=== PATIENT | female | born 1955 | race Caucasian/White ===

== ENCOUNTER 2019-12-16 20:48 | Inpatient (IN) ==
[2019-12-16] MEDS ORDERED: HYDROmorphone 2 MG/1 ML VIAL IV STA (21:53)
[2019-12-16] MEDS ORDERED: SODIUM CHLORIDE 0.9% 500 ML IV STA (21:53)
[2019-12-16] MEDS ORDERED: ONDANSETRON 4 MG/2 ML VIAL IV STA (21:53)
[2019-12-16 22:24] LABS: Basophils # 0.1 10*3/uL (0.0-0.2); Basophils % 0.5 % (0.0-0.8); Eosinophils % 0.3 % (0.00-10.9); Hematocrit 41.4 VOL% (35.7-47.0); Hemoglobin 13.2 GM/DL (12.0-16.0); Immature Granulocytes % 0.9 %; Immature Granulocytes Absolute 0.09 #; Lymphocytes % 10.4 % (21.3-54.2); Mean Corpuscular HGB Conc 31.9 GM/DL (32-36); Mean Corpuscular Volume 82.1 FL (87-102); Monocytes % 4.6 % (1.7-12.7); Neutrophils % 83.3 % (38.7-73.9); Platelet Count 241 T/CUMM (130-400); Red Blood Count 5.04 MC/CUMM (3.8-5.5); White Blood Count 9.8 T/CUMM (4-12)
[2019-12-16 22:34] LABS: PT Patient Result 10.3 SECS (9.8-11.9)
[2019-12-16 22:47] LABS: Apearance,Urine Slightly Hazy (Clear); Bilirubin,Urine Negative (Negative); Blood, Urine Negative (Negative); Glucose,Urine (UA) Negative (Negative); Hyaline Casts,Urine 1 /LPF (0-3); Ketones,Urine Negative (Negative); Mucus,Urine Occasional /LPF (Occasional); Nitrite,Urine Negative (Negative); Protein,Urine Negative; RBC,Urine 1 /HPF (0-4); Squamous Epithelial Cell,Urine Occasional /HPF (0-10); Urine Color Amber (Yellow); Urine Specific Gravity 1.024 (1.001-1.035); Urine Urobilinogen < 2.0 EU/DL (0.2-1.0); WBC,Urine 1 /HPF (0-6)
[2019-12-16 22:58] LABS: Alanine Aminotransferase 25 U/L (13-56); Albumin 3.4 G/DL (3.4-5.0); Alkaline Phosphatase 70 U/L (45-117); Aspartate Amino Transferase 18 U/L (0-37); Blood Urea Nitrogen 15 MG/DL (7-18); Estimated Glom Filtration Rate 100 ML/MIN; Glucose 120 MG/DL (74-106); Osmolality,Calculated 278.5 MOS/KG (273-304); Total Protein 6.9 G/DL (6.4-8.3)
[2019-12-16] MEDS ORDERED: MAGNESIUM HYDROXIDE SUSP 30 ML UDCUP PO PRN (23:04)
[2019-12-17] MEDS: SODIUM CHLORIDE 0.9% 1,000 ML IV SCH ×2 (00:19→09:26)
[2019-12-17] MEDS: HYDROmorphone 2 MG/1 ML VIAL IV PRN ×3 (02:05→10:00)
[2019-12-17 05:03] LABS: Basophils % 0.4 % (0.0-0.8); Eosinophils % 0.4 % (0.00-10.9); Hemoglobin 12.1 GM/DL (12.0-16.0); Immature Granulocytes % 0.5 %; Immature Granulocytes Absolute 0.04 #; Lymphocytes # 1.1 10*3/uL (1.4-4.0); Lymphocytes % 14.2 % (21.3-54.2); Mean Corpuscular Volume 83.2 FL (87-102); Mean Platelet Volume 9.2 FL (9.6-12.0); Neutrophils % 77.5 % (38.7-73.9); Platelet Count 203 T/CUMM (130-400); Red Blood Count 4.69 MC/CUMM (3.8-5.5); White Blood Count 7.5 T/CUMM (4-12)
[2019-12-17 05:30] LABS: Albumin 3.1 G/DL (3.4-5.0); Bilirubin,Total 0.9 MG/DL (0.2-1.0); Calcium 8.3 MG/DL (8.5-10.1); Osmolality,Calculated 272.8 MOS/KG (273-304); Total Protein 6.1 G/DL (6.4-8.3)
[2019-12-17] MEDS: ONDANSETRON 4 MG/2 ML VIAL IV PRN ×2 (05:57→09:59)
[2019-12-17] MEDS ORDERED: ceFAZolin 1,000 MG in SYRINGE 1 EACH IV ONE (06:30)
[2019-12-17] MEDS ORDERED: ceFAZolin 2,000 MG in PREMIX 1 EACH IV ONE (07:17)
[2019-12-17] MEDS: MULTIVITAMIN (BEROCCA) TABLET PO SCH (08:58)
[2019-12-17] MEDS ORDERED: ENOXAPARIN 40 MG/0.4 ML SYRINGE SUBCUT SCH (09:00)
[2019-12-17] MEDS ORDERED: ZALEPLON 5 MG CAPSULE PO PRN (11:30)
[2019-12-17] MEDS ORDERED: diphenhydrAMINE CAP 25 MG CAPSULE PO PRN (11:30)
[2019-12-17] MEDS ORDERED: TRANEXAMIC ACID 1,000 MG/10 ML VIAL ONE (11:54)
[2019-12-17] MEDS ORDERED: BACITRACIN OINT 0.9 GM PACK TOP ONE (11:54)
[2019-12-17] MEDS ORDERED: ROPIVACAINE 0.5% 30 ML VIAL ONE (12:27)
[2019-12-17] MEDS ORDERED: BUPIVACAINE SPINAL 0.75% 2 ML AMP SPINAL ONE (12:46)
[2019-12-17] MEDS ORDERED: propofoL 200 MG/20 ML VIAL IV ONE (12:46)
[2019-12-17] MEDS ORDERED: LIDOCAINE 2% 5 ML VIAL ONE (12:46)
[2019-12-17] MEDS ORDERED: MIDAZOLAM 2 MG/2 ML VIAL ONE (12:47)
[2019-12-17] MEDS ORDERED: KETAMINE 500 MG/10 ML VIAL ONE (12:47)
[2019-12-17] MEDS ORDERED: ePHEDrine 50 MG/ML AMP ONE (12:47)
[2019-12-17] MEDS ORDERED: fentaNYL 100 MCG/2 ML VIAL ONE (12:47)
[2019-12-17] MEDS ORDERED: SODIUM CHLORIDE 0.9% 100 ML IV ONE (12:47)
[2019-12-17] MEDS: LACTATED RINGERS 1,000 ML IV SCH (13:01)
[2019-12-17] MEDS: KETOROLAC 30 MG/1 ML VIAL IV SCH ×3 (14:13→23:09)
[2019-12-17] MEDS: ceFAZolin 2,000 MG in PREMIX 1 EACH IV SCH ×2 (15:10→23:14)
[2019-12-17] MEDS: DOCUSATE SODIUM 100 MG CAPSULE PO SCH (23:09)
[2019-12-17] MEDS: FAMOTIDINE 20 MG TABLET PO SCH (23:09)
[2019-12-18] MEDS: LACTATED RINGERS 1,000 ML IV SCH (00:03)
[2019-12-18] MEDS: FONDAPARINUX 2.5 MG/0.5 ML SYRINGE SUBCUT SCH (05:43)
[2019-12-18] MEDS: KETOROLAC 30 MG/1 ML VIAL IV SCH (05:44)
[2019-12-18 06:28] LABS: Basophils % 0.7 % (0.0-0.8); Eosinophils # 0.1 10*3/uL (0.0-0.87); Eosinophils % 1.8 % (0.00-10.9); Hematocrit 32.5 VOL% (35.7-47.0); Hemoglobin 10.6 GM/DL (12.0-16.0); Immature Granulocytes % 0.3 %; Immature Granulocytes Absolute 0.02 #; Lymphocytes # 1.2 10*3/uL (1.4-4.0); Lymphocytes % 19.3 % (21.3-54.2); Mean Corpuscular HGB Conc 32.6 GM/DL (32-36); Mean Corpuscular Volume 80.6 FL (87-102); Mean Platelet Volume 9.2 FL (9.6-12.0); Monocytes % 7.4 % (1.7-12.7); Neutrophils % 70.5 % (38.7-73.9); Platelet Count 168 T/CUMM (130-400); Red Blood Count 4.03 MC/CUMM (3.8-5.5); Red Cell Distribution Width 14.3 % (9.3-17.3)
[2019-12-18] MEDS: amLODIPine 10 MG TABLET PO SCH (08:12)
[2019-12-18] MEDS: FAMOTIDINE 20 MG TABLET PO SCH ×2 (08:12→21:11)
[2019-12-18] MEDS: DOCUSATE SODIUM 100 MG CAPSULE PO SCH ×2 (08:12→21:11)
[2019-12-18] MEDS: MULTIVITAMIN (BEROCCA) TABLET PO SCH (08:13)
[2019-12-18] MEDS: HYDROmorphone 2 MG/1 ML VIAL IV PRN ×3 (09:32→21:12)
[2019-12-18 17:41] LABS: Calcium 8.4 MG/DL (8.5-10.1); Osmolality,Calculated 276.4 MOS/KG (273-304)
[2019-12-19] MEDS: HYDROmorphone 2 MG/1 ML VIAL IV PRN ×5 (03:09→21:23)
[2019-12-19] MEDS: FONDAPARINUX 2.5 MG/0.5 ML SYRINGE SUBCUT SCH (05:25)
[2019-12-19 06:14] LABS: Basophils % 0.7 % (0.0-0.8); Eosinophils # 0.2 10*3/uL (0.0-0.87); Eosinophils % 2.5 % (0.00-10.9); Hematocrit 32.6 VOL% (35.7-47.0); Hemoglobin 10.3 GM/DL (12.0-16.0); Immature Granulocytes % 0.3 %; Immature Granulocytes Absolute 0.02 #; Lymphocytes # 1.4 10*3/uL (1.4-4.0); Lymphocytes % 22.7 % (21.3-54.2); Mean Corpuscular HGB Conc 31.6 GM/DL (32-36); Mean Corpuscular Volume 82.5 FL (87-102); Mean Platelet Volume 9.3 FL (9.6-12.0); Monocytes % 7.6 % (1.7-12.7); Neutrophils % 66.2 % (38.7-73.9); Platelet Count 166 T/CUMM (130-400); Red Blood Count 3.95 MC/CUMM (3.8-5.5); Red Cell Distribution Width 14.3 % (9.3-17.3); White Blood Count 5.9 T/CUMM (4-12)
[2019-12-19] MEDS: DOCUSATE SODIUM 100 MG CAPSULE PO SCH ×2 (08:19→21:18)
[2019-12-19] MEDS: amLODIPine 10 MG TABLET PO SCH (08:19)
[2019-12-19] MEDS: FAMOTIDINE 20 MG TABLET PO SCH ×2 (08:19→21:18)
[2019-12-19] MEDS: MULTIVITAMIN (BEROCCA) TABLET PO SCH (08:19)
[2019-12-19] MEDS ORDERED: PNEUMOCOCCAL VACCINE (23 VALENT) 0.5 ML VIAL IM ONE (11:12)
[2019-12-20] MEDS: HYDROmorphone 2 MG/1 ML VIAL IV PRN ×2 (01:41→08:28)
[2019-12-20] MEDS: FONDAPARINUX 2.5 MG/0.5 ML SYRINGE SUBCUT SCH (05:45)
[2019-12-20 07:24] LABS: Basophils % 0.6 % (0.0-0.8); Eosinophils # 0.2 10*3/uL (0.0-0.87); Eosinophils % 2.4 % (0.00-10.9); Hematocrit 33.3 VOL% (35.7-47.0); Hemoglobin 10.5 GM/DL (12.0-16.0); Immature Granulocytes % 0.5 %; Immature Granulocytes Absolute 0.03 #; Lymphocytes # 1.1 10*3/uL (1.4-4.0); Lymphocytes % 17.3 % (21.3-54.2); Mean Corpuscular HGB Conc 31.5 GM/DL (32-36); Mean Corpuscular Volume 82.6 FL (87-102); Mean Platelet Volume 9.2 FL (9.6-12.0); Monocytes % 7.5 % (1.7-12.7); Neutrophils % 71.7 % (38.7-73.9); Platelet Count 175 T/CUMM (130-400); Red Blood Count 4.03 MC/CUMM (3.8-5.5); Red Cell Distribution Width 14.1 % (9.3-17.3); White Blood Count 6.2 T/CUMM (4-12)
[2019-12-20] MEDS: MULTIVITAMIN (BEROCCA) TABLET PO SCH (08:34)
[2019-12-20] MEDS: amLODIPine 10 MG TABLET PO SCH (08:34)
[2019-12-20] MEDS: DOCUSATE SODIUM 100 MG CAPSULE PO SCH (08:34)
[2019-12-20] MEDS: FAMOTIDINE 20 MG TABLET PO SCH (08:35)
[2019-12-20 12:22] VITALS: BP 132/55
== END 2019-12-20 13:50 | DRG 482 ==
LOC: N.ED 20:48 → N.EDINP 21:57 → N.3E 22:38
PROVIDERS: ADMIT Orthopaedic Surgery; ATTEND Orthopaedic Surgery